=== PATIENT | male | born 1980 | race Two or more races ===

== ENCOUNTER 2018-12-21 06:27 | Emergency (ER) | payer MEDICAID ==
[~2018-12-21] VITALS: Ht 162.6 cm; Wt 49.9 kg
[2018-12-21 07:57] LABS: Basophils # (auto) 0 uL; Basophils % (auto) 0.3 % (0.0-2.0); Eosinophils # (auto) 0 uL; Eosinophils % (auto) 0.4 % (0.0-7.0); Hematocrit 34.7 % (41.0-53.0); Hemoglobin 11.5 g/dL (13.5-17.5); Lymphocytes # (auto) 1.2 uL; Lymphocytes % (auto) 27.2 % (10.0-50.0); Mean Corpuscular Hemoglobin 30.8 pg (28.0-32.0); Mean Corpuscular Hgb Conc. 33.2 g/dL (32.0-36.0); Mean Corpuscular Volume 92.9 fL (80.0-100.0); Monocytes # (auto) 0.6 uL; Monocytes % (auto) 13.3 % (0.0-12.0); Neutrophils # (auto) 2.5 uL; Neutrophils % (auto) 58.8 % (37.0-80.0); Nucleated Red Blood Cells % 0.1 %; Platelet Count (auto) 162 10^3/uL (140-450); Red Blood Cells 3.73 10^6/uL (4.5-5.90); Red Cell Distribution Width 13.1 % (11.8-14.3); White Blood Cell 4.3 10^3/uL (4.4-10.8)
[2018-12-21 08:00] VITALS: BP 110/77
[2018-12-21 08:01] LABS: Urine Bacteria NONE SEEN /hpf (None Seen); Urine Blood Negative /uL (Negative); Urine Mucus FEW (None Seen); Urine WBC 97 /hpf (0 - 3)
[2018-12-21 08:21] LABS: Albumin 3.4 g/dL (3.4-5.0); BUN/Creatinine Ratio 23.8; Calcium 8.5 mg/dL (8.5-10.1); Potassium 3.6 mmol/L (3.5-5.1)
[2018-12-21 08:24] LABS: Bilirubin, Total 0.2 mg/dL (0.2-1.0); Total Protein 9.7 g/dL (6.4-8.2)
[2018-12-21 08:28] LABS: Alcohol, Urine < 3.0 mg/dL (0-5); Amphetamine Screen, Urine POSITIVE (NEGATIVE); Barbiturate Scree,Urine NEGATIVE (NEGATIVE); Benzodiazephine Screen, Urine NEGATIVE (NEGATIVE); Cannabinoid Screen, Urine NEGATIVE (NEGATIVE); Cocaine Screen, Urine NEGATIVE (NEGATIVE); Opiate Scree,Urine NEGATIVE (NEGATIVE); Phencyclidine Screen, Urine NEGATIVE (NEGATIVE)
[2018-12-21] MEDS ORDERED: ACETAMINOPHEN 325 MG TAB PO ONE (08:30)
== END 2018-12-21 09:30 | disposition home or self-care (01) ==
LOC: ER 06:27
DX: S00.81XA Abrasion of other part of head, initial encounter (principal); L03.211 Cellulitis of face; X58.XXXA Exposure to other specified factors, initial encounter; Y93.89 Activity, other specified; Y99.8 Other external cause status; Y92.89 Other specified places as the place of occurrence of the external cause
CPT/HCPCS: 36415; 80053; 80307; 81001; 85025

== ENCOUNTER 2019-06-23 10:22 | Emergency (ER) | payer MEDICAID ==
[~2019-06-23] VITALS: Ht 165.1 cm; Wt 59.4 kg
[2019-06-23 10:36] VITALS: BP 113/75
== END 2019-06-23 11:25 | disposition home or self-care (01) ==
LOC: ER 10:22
DX: B02.9 Zoster without complications (principal)

== ENCOUNTER 2019-08-17 10:52 | Emergency (ER) | payer MEDICAID ==
[~2019-08-17] VITALS: Ht 165.1 cm; Wt 55.8 kg
[2019-08-17 10:57] VITALS: BP 140/82
== END 2019-08-17 12:20 | disposition left against medical advice (07) ==
LOC: ER 10:52
DX: R06.02 Shortness of breath (principal); Z53.21 Procedure and treatment not carried out due to patient leaving prior to being seen by health care provider

== ENCOUNTER → 2020-01-03 | Emergency (ER) | payer MEDICAID ==
[~2020-01-03] VITALS: Ht 165.1 cm; Wt 54.4 kg
[2020-01-03 08:45] VITALS: BP 117/78
== END | disposition home or self-care (01) ==
LOC: ER 08:34
DX: L02.214 Cutaneous abscess of groin (principal); Z88.5 Allergy status to narcotic agent; Z88.8 Allergy status to other drugs, medicaments and biological substances

== ENCOUNTER 2020-01-30 16:56 | Emergency (ER) | payer MEDICAID ==
[~2020-01-30] VITALS: Ht 165.1 cm; Wt 56.7 kg
[2020-01-30 17:44] VITALS: BP 111/84
== END 2020-01-30 17:49 | disposition home or self-care (01) ==
LOC: ER 16:56
DX: L02.416 Cutaneous abscess of left lower limb (principal); Z88.5 Allergy status to narcotic agent; Z88.8 Allergy status to other drugs, medicaments and biological substances

== ENCOUNTER 2020-02-13 12:01 | Emergency (ER) | payer MEDICAID ==
[~2020-02-13] VITALS: Ht 165.1 cm; Wt 58.5 kg
[2020-02-13 13:10] VITALS: BP 116/63
== END 2020-02-13 13:53 | disposition home or self-care (01) ==
LOC: ER 12:01
DX: S00.93XA Contusion of unspecified part of head, initial encounter (principal); M62.838 Other muscle spasm; M54.2 Cervicalgia; Z88.5 Allergy status to narcotic agent; Z88.8 Allergy status to other drugs, medicaments and biological substances; W18.39XA Other fall on same level, initial encounter; Y93.89 Activity, other specified; Y92.89 Other specified places as the place of occurrence of the external cause; Y99.8 Other external cause status

== ENCOUNTER 2020-06-19 11:13 | Emergency (ER) | payer MEDICAID ==
[~2020-06-19] VITALS: Ht 165.1 cm; Wt 63.5 kg
[2020-06-19 12:16] VITALS: BP 128/95
== END 2020-06-19 13:09 | disposition home or self-care (01) ==
LOC: ER 11:13
DX: H10.9 Unspecified conjunctivitis (principal); F12.10 Cannabis abuse, uncomplicated; Z88.6 Allergy status to analgesic agent

== ENCOUNTER 2020-11-29 14:48 | Emergency (ER) | payer MEDICAID ==
[~2020-11-29] VITALS: Ht 165.1 cm; Wt 62.1 kg
[2020-11-29 15:10] VITALS: BP 138/65
== END 2020-11-29 17:04 | disposition home or self-care (01) ==
LOC: ER 14:48
DX: L84 Corns and callosities (principal); F15.10 Other stimulant abuse, uncomplicated; F14.10 Cocaine abuse, uncomplicated; Z88.6 Allergy status to analgesic agent
CPT/HCPCS: 73630

== ENCOUNTER 2020-12-14 10:53 | Emergency (ER) | payer MEDICAID ==
[~2020-12-14] VITALS: Ht 165.1 cm; Wt 61.2 kg
[2020-12-14 12:59] VITALS: BP 109/79
[2020-12-14] MEDS ORDERED: IOHEXOL 350 MG/ML 100ML IJ ONE (14:56)
== END 2020-12-14 13:17 | disposition home or self-care (01) ==
LOC: ER 10:53
DX: S20.212A Contusion of left front wall of thorax, initial encounter (principal); F15.10 Other stimulant abuse, uncomplicated; F14.10 Cocaine abuse, uncomplicated; Z88.6 Allergy status to analgesic agent; Y04.2XXA Assault by strike against or bumped into by another person, initial encounter; Y93.89 Activity, other specified; Y92.89 Other specified places as the place of occurrence of the external cause; Y99.8 Other external cause status
CPT/HCPCS: 71101; 99283; Q9967

== ENCOUNTER 2020-12-18 09:53 | Emergency (ER) | payer MEDICAID ==
[~2020-12-18] VITALS: Ht 165.1 cm; Wt 61.2 kg
[2020-12-18 09:54] VITALS: BP 146/90
== END 2020-12-18 12:09 | disposition home or self-care (01) ==
LOC: ER 09:53
DX: S80.812A Abrasion, left lower leg, initial encounter (principal); S80.811A Abrasion, right lower leg, initial encounter; X58.XXXA Exposure to other specified factors, initial encounter; Y93.89 Activity, other specified; Y92.89 Other specified places as the place of occurrence of the external cause; Y99.8 Other external cause status

== ENCOUNTER 2021-07-31 14:45 | Emergency (ER) | payer MEDICAID ==
[~2021-07-31] VITALS: Ht 170.2 cm; Wt 56.2 kg
[2021-07-31 15:03] VITALS: BP 150/70
== END 2021-07-31 15:02 | disposition left against medical advice (07) ==
LOC: EDBD 14:45 → ER 14:45
DX: F15.10 Other stimulant abuse, uncomplicated (principal); Z53.21 Procedure and treatment not carried out due to patient leaving prior to being seen by health care provider

== ENCOUNTER 2021-10-14 21:45 | Emergency (ER) | payer MEDICAID ==
[~2021-10-14] VITALS: Ht 165.1 cm; Wt 53.1 kg
[2021-10-14 21:47] VITALS: BP 135/84
== END 2021-10-15 01:34 | disposition left against medical advice (07) ==
LOC: ER 21:46
DX: H57.89 Other specified disorders of eye and adnexa (principal); Z53.21 Procedure and treatment not carried out due to patient leaving prior to being seen by health care provider

== ENCOUNTER 2022-02-23 10:08 | Emergency (ER) | payer MEDICAID ==
[~2022-02-23] VITALS: Ht 167.6 cm; Wt 49.9 kg
[2022-02-23] MEDS ORDERED: BICT1TAB PO (12:02)
[2022-02-23 12:03] VITALS: BP 120/77
== END 2022-02-23 12:12 | disposition home or self-care (01) ==
LOC: ER 10:08
DX: B20 Human immunodeficiency virus [HIV] disease (principal); Z76.0 Encounter for issue of repeat prescription; Z88.6 Allergy status to analgesic agent

== ENCOUNTER 2023-07-12 08:01 | Emergency (ER) | payer MEDICAID ==
[~2023-07-12] VITALS: Ht 165.1 cm; Wt 56.0 kg
[~2023-07-12 08:01] MED LIST: BACDST PO; BICT1TAB PO; TRIA0.02 TOP
[2023-07-12 08:45] VITALS: BP 124/103; PULSE 97; RESP 16; TEMP 97.8; O2SAT 99
[2023-07-12] MEDS ORDERED: FLUORESCEIN SOD OPTH TEST STRIP LEFTEYE ONE (10:15)
[2023-07-12] MEDS ORDERED: TOBR0.3S37 OP (10:42)
== END 2023-07-12 10:51 | disposition home or self-care (01) ==
LOC: ER 08:01
DX: S05.02XA Injury of conjunctiva and corneal abrasion without foreign body, left eye, initial encounter (principal); H10.9 Unspecified conjunctivitis; F15.90 Other stimulant use, unspecified, uncomplicated; Z88.6 Allergy status to analgesic agent; Z88.8 Allergy status to other drugs, medicaments and biological substances; Z79.899 Other long term (current) drug therapy; X58.XXXA Exposure to other specified factors, initial encounter; Y93.89 Activity, other specified; Y92.89 Other specified places as the place of occurrence of the external cause; Y99.8 Other external cause status

== ENCOUNTER 2023-08-22 18:19 | Emergency (ER) | payer MEDICAID ==
[~2023-08-22] VITALS: Ht 167.6 cm; Wt 54.5 kg
[~2023-08-22 18:19] MED LIST changes: +TOBR0.3S37 OP
[2023-08-22 18:26] VITALS: BP 144/76; PULSE 100; RESP 16; TEMP 97.6; O2SAT 94
[2023-08-22 19:08] LABS: Urine Bacteria NONE SEEN /hpf (None Seen); Urine Blood 1+ /uL (Negative); Urine Clarity HAZY (Clear); Urine Color Yellow (Yellow); Urine Mucus FEW (None Seen); Urine Protein, UAD TRACE (Negative); Urine Specific Gravity 1.028 (1.001-1.035); Urine Urobilinogen Normal (Negative); Urine WBC 244 /hpf (0 - 3); Urine pH 5.5 (5.0-8.0)
[2023-08-22] MEDS ORDERED: ALBUTEROL SULF 2.5 MG/0.5ML(0.5%) NEB SOLN NEB ONE (19:45)
[2023-08-22] MEDS ORDERED: DexAMETHasone SOD PHOS 4 MG/1ML SDV INJ IM ONE (19:45)
[2023-08-22] MEDS ORDERED: ALBUTEROL SULF 2.5 MG/0.5ML(0.5%) NEB SOLN ONE (19:46)
[2023-08-22] MEDS ORDERED: CEPH500C PO (20:10)
[2023-08-22] MEDS ORDERED: DOXY100C4 PO (20:10)
[2023-08-22] MEDS ORDERED: AZITHROMYCIN 250 MG TAB PO ONE (20:15)
[2023-08-22] MEDS: cefTRIAXone SOD 1,000 MG VL IM ONE ×2 (20:15→20:30)
== END 2023-08-22 20:37 | disposition home or self-care (01) ==
LOC: ER 18:19
DX: N34.2 Other urethritis (principal); F15.10 Other stimulant abuse, uncomplicated; Z20.2 Contact with and (suspected) exposure to infections with a predominantly sexual mode of transmission; Z88.6 Allergy status to analgesic agent
CPT/HCPCS: 81001; 99283; J0696

== ENCOUNTER 2023-11-17 14:29 | Emergency (ER) | payer MEDICAID ==
[~2023-11-17] VITALS: Ht 165.1 cm; Wt 56.6 kg
[~2023-11-17 14:29] MED LIST changes: +CEPH500C PO; +DOXY100C4 PO
[2023-11-17 14:45] VITALS: BP 112/72; PULSE 105; RESP 16; O2SAT 99
[2023-11-17 15:18] LABS: Urine Bacteria FEW /hpf (None Seen); Urine Blood TRACE /uL (Negative); Urine Clarity Clear (Clear); Urine Color Yellow (Yellow); Urine Mucus FEW (None Seen); Urine Protein, UAD 1+ (Negative); Urine Specific Gravity 1.031 (1.001-1.035); Urine Urobilinogen Normal (Negative); Urine WBC 26 /hpf (0 - 3); Urine pH 5.5 (5.0-8.0)
[2023-11-17 15:46] LABS: Basophils # (auto) 0 10 ^3/uL (0-0.2); Basophils % (auto) 0.1 % (0.0-2.0); Eosinophils # (auto) 0 10 ^3/uL (0-0.8); Eosinophils % (auto) 0.1 % (0.0-7.0); Hematocrit 39.1 % (41.0-53.0); Hemoglobin 12.4 g/dL (13.5-17.5); Lymphocytes # (auto) 2.3 10 ^3/uL (0.4-5.4); Lymphocytes % (auto) 21.3 % (10.0-50.0); Mean Corpuscular Hemoglobin 29.8 pg (28.0-32.0); Mean Corpuscular Hgb Conc. 31.8 g/dL (32.0-36.0); Mean Corpuscular Volume 93.7 fL (80.0-100.0); Monocytes # (auto) 1.1 10 ^3/uL (0-1.3); Monocytes % (auto) 10.1 % (0.0-12.0); Neutrophils # (auto) 7.2 10 ^3/uL (1.6-8.6); Neutrophils % (auto) 68.4 % (37.0-80.0); Nucleated Red Blood Cells % 0.1 %; Red Blood Cells 4.17 10^6/uL (4.5-5.90); Red Cell Distribution Width 14.1 % (11.8-14.3); White Blood Cell 10.6 10^3/uL (4.4-10.8)
[2023-11-17 16:08] LABS: Alanine Aminotransferase 21 U/L (7-40); Alkaline Phosphatase 78 U/L (46-116); Anion Gap 4 (5-15); Aspartate Aminotransferase 33 U/L (13-40); BUN/Creatinine Ratio 9.2 (10.0-20.0); Blood Urea Nitrogen 6 mg/dL (9-23); Calcium 8.6 mg/dL (8.5-10.1); Carbon Dioxide 22 mmol/L (20-30); Chloride 110 mmol/L (98-107); Glucose 81 mg/dL (74-106); Potassium 3.7 mmol/L (3.5-5.1); Sodium 136 mmol/L (136-145)
[2023-11-17 16:09] LABS: Bilirubin, Total 0.3 mg/dL (0.2-1.0); Total Protein 7.5 g/dL (5.7-8.2)
[2023-11-17] MEDS ORDERED: LEVO750T40 PO (22:16)
[2023-11-17] MEDS: cefTRIAXone SOD 1,000 MG VL IM ONE (22:57)
[2023-11-17] MEDS: DOXYCYCLINE 100 MG TAB/CAP PO ONE (22:59)
[2023-11-17] MEDS: cefTRIAXone 1GM/50ML D5W 50 ML IV ONE (22:59)
[2023-11-18 19:06] LABS: Chlamydia Trachomatis, NAA Negative (Negative); Neisseria gonorrhoeae, NAA Negative (Negative)
== END 2023-11-17 23:33 | disposition home or self-care (01) ==
LOC: ER 14:29
DX: N45.3 Epididymo-orchitis (principal); N39.0 Urinary tract infection, site not specified; R19.7 Diarrhea, unspecified; Z79.2 Long term (current) use of antibiotics; Z79.899 Other long term (current) drug therapy; Z88.8 Allergy status to other drugs, medicaments and biological substances
CPT/HCPCS: 36415; 74176; 76870; 80053; 81001; 82270; 83605; 83690; 85025; 85048; 87040; 87045; 87177; 87427; 87491; 87493; 87591; 99285; J0696

== ENCOUNTER 2023-12-21 19:31 | Emergency (ER) | payer MEDICAID ==
[~2023-12-21] VITALS: Ht 165.1 cm; Wt 57.0 kg
[~2023-12-21 19:31] MED LIST changes: +LEVO750T40 PO
[2023-12-21 19:53] VITALS: O2SAT 98
[2023-12-21 19:54] LABS: Basophils # (auto) 0 10 ^3/uL (0-0.2); Basophils % (auto) 0.5 % (0.0-2.0); Eosinophils # (auto) 0 10 ^3/uL (0-0.8); Eosinophils % (auto) 0.9 % (0.0-7.0); Hematocrit 37.2 % (41.0-53.0); Hemoglobin 12.2 g/dL (13.5-17.5); Lymphocytes # (auto) 1.7 10 ^3/uL (0.4-5.4); Mean Corpuscular Hemoglobin 30.5 pg (28.0-32.0); Mean Corpuscular Hgb Conc. 32.9 g/dL (32.0-36.0); Mean Corpuscular Volume 92.7 fL (80.0-100.0); Monocytes # (auto) 0.6 10 ^3/uL (0-1.3); Monocytes % (auto) 12.6 % (0.0-12.0); Neutrophils # (auto) 2.4 10 ^3/uL (1.6-8.6); Nucleated Red Blood Cells % 0.1 %; Red Blood Cells 4.02 10^6/uL (4.5-5.90); Red Cell Distribution Width 14.3 % (11.8-14.3); White Blood Cell 4.8 10^3/uL (4.4-10.8)
[2023-12-21 20:05] LABS: Chloride 107 mmol/L (98-107); Potassium 3.7 mmol/L (3.5-5.1); Sodium 140 mmol/L (136-145)
[2023-12-21 20:06] LABS: Anion Gap 7 (5-15); Carbon Dioxide 26 mmol/L (20-30)
[2023-12-21 20:11] LABS: BUN/Creatinine Ratio 17.1 (10.0-20.0); Blood Urea Nitrogen 14 mg/dL (9-23); Glucose 84 mg/dL (74-106)
[2023-12-21 20:46] LABS: Urine Bacteria None Seen /hpf (None Seen)
[2023-12-21 20:57] LABS: Urine Blood 3+ /uL (Negative); Urine Clarity Turbid (Clear); Urine Color Colorless (Yellow); Urine Protein, UAD 2+ (Negative); Urine Specific Gravity 1.023 (1.001-1.035); Urine Urobilinogen Normal (Negative); Urine WBC 551 /hpf (0 - 3); Urine WBC Clumps PRESENT /hpf (None Seen); Urine pH 7.5 (5.0-9.0)
[2023-12-21] MEDS ORDERED: CIPR-173 PO (21:02)
[2023-12-21 22:31] VITALS: BP 123/80; PULSE 85; RESP 85; TEMP 98.7
== END 2023-12-21 22:36 | disposition home or self-care (01) ==
LOC: ER 19:31
DX: N34.2 Other urethritis (principal); F15.10 Other stimulant abuse, uncomplicated; Z88.6 Allergy status to analgesic agent
CPT/HCPCS: 36415; 74176; 80048; 81001; 85025

== ENCOUNTER 2024-03-13 12:58 | Emergency (ER) | payer MEDICAID ==
[~2024-03-13] VITALS: Ht 165.1 cm; Wt 56.1 kg
[~2024-03-13 12:58] MED LIST changes: +CIPR-173 PO
[2024-03-13 16:27] VITALS: BP 119/78; PULSE 100; RESP 18; TEMP 98; O2SAT 100
[2024-03-13] MEDS: PENICILLIN G BENZ 1,200,000 UNITS/2 ML SYRG IM ONE (17:02)
== END 2024-03-13 16:58 | disposition home or self-care (01) ==
LOC: ER 12:58
DX: A53.9 Syphilis, unspecified (principal); F15.90 Other stimulant use, unspecified, uncomplicated; Z79.1 Long term (current) use of non-steroidal anti-inflammatories (NSAID); Z79.891 Long term (current) use of opiate analgesic; Z79.899 Other long term (current) drug therapy; Z90.89 Acquired absence of other organs
CPT/HCPCS: 90471; 99283; J0561

== ENCOUNTER 2025-04-18 06:25 | Emergency (ER) | payer MEDICAID ==
[~2025-04-18] VITALS: Ht 165.1 cm; Wt 57.0 kg
[2025-04-18 07:15] VITALS: BP 123/77; PULSE 93; RESP 20; TEMP 98.3; O2SAT 95
--- NOTE | 2025-04-18 07:26 | ED.PDOC ---
Eye-HPI HPI Comments This is a 44 year old male presenting to the ED with chief complaint of left eye pain, redness, and vision loss. Patient reports that he has been experiencing redness, pain, and vision loss to the left eye for a month. Patient relays that his pain is a 4/10 at this time. Recent visit to [place] last Thursday indicated that he had an ulcer to the left eye, being prescribed Vancomycin and Tobramycin eye drops, but no relief has been noted. Patient states he was advised by [facility]ologists to return to their hospital if no relief had been noted by the antibiotics so that he can undergo emergency surgery. Patient notes he has no ride to drive down to [place], requesting to be transferred from the ED today. Denies eye discharge Denies hearing changes, nausea, vomiting Denies difficulty keeping eye open, feeling of something stuck in the eye, sensitivity to light Chief Complaint: Eye Problem Time Seen by MD: 07:15 Primary Care Provider: unknown Reviewed Notes: Nurses Notes, Medications, Allergies Allergies: Coded Allergies: Acetaminophen (Verified Allergy, Unknown, 08/17/19) Hydrocodone (Verified Allergy, Unknown, 08/17/19) Home Meds Active Scripts Ciprofloxacin Hcl (Cipro) 500 Mg Tab, 1 TAB PO BID, #14 TAB Prov:MIKAELA OLIVEIRA MD 12/21/23 Levofloxacin Hemihydrate (LEVOFLOXACIN) 750 Mg Tab, 500 MG PO DAILY for 10 Days, #10 TAB Prov:VIKASH ANDERSEN DO 11/17/23 Cephalexin Monohydrate (Cephalexin) 500 Mg Cap, 1 CAP PO TID for 10 Days, #30 CAP Prov:SANCHEZ RUBIO Q JOB COACHING 08/22/23 Doxycycline Hyclate (Doxycycline Hyclate) 100 Mg Cap, 1 TAB PO BID for 14 Days, #28 CAP Prov:SANCHEZ RUBIO Q JOB COACHING 08/22/23 Tobramycin (Ophth) (Tobramycin) 0.3 % Melissa, 0.3 % OP Q4HR for 7 Days, #5 ML Prov:MALI TONG JOB COACHING 07/12/23 Sulfamethoxazole W/Trimethopri (Bactrim Ds Tablet) 1 Tab Tb, 1 TAB PO BID for 10 Days, #20 TAB Prov:LAZARUS SOLO 07/26/22 Triamcinolone Acetonide (Triamcinolone Acetonide) 0.025 % Cre, 1 APPLIC TOP BID, #30 GRAMS Prov:LAZARUS SOLO 07/26/22 Ibfceejqerv-Pppxcyhqetgjz-Euap (Biktarvy 50-200-25 mg) 1 Tab Tab, 1 TAB PO DAILY, #30 TAB 0 Refills Prov:NABIL JUAREZ 02/23/22 Information Source: Patient Mode of Arrival: Ambulatory Timing: Months Duration: Since onset Prehospital treatment: None Quality: Pain, Red, Visual Loss Eye Location: Left Lids: Red Conjunctiva: Injection Onset: Spontaneous Throat Exposed to: None History of: None Past Medical History PAST MEDICAL HISTORY: HIV Surgical History: Appendectomy Family History Family History: Reviewed,noncontributory to illness Social History Smoker: Non-Smoker Alcohol: Denies ETOH Use Drugs: Methamphetamine Lives In: Home Constitutional: denies: chills, diaphoresis, fatigue, fever, malaise, sweats, weakness, others EENTM: reports: blurred vision, eye pain, eye redness; denies: double vision, ear bleeding, ear discharge, ear drainage, ear pain, ear ringing, hearing loss, mouth pain, mouth swelling, nasal discharge, nose bleeding, nose congestion, nose pain, photophobia, tearing, throat pain, throat swelling, voice changes, others Respiratory: denies: cough, hemoptysis, orthopnea, SOB at rest, shortness of breath, SOB with excertion, stridor, wheezing, others Cardiovascular: denies: chest pain, dizzy spells, diaphoresis, Dyspnea on exertion, edema, irregular heart beat, left arm pain, lightheadedness, palpitations, PND, syncope, others Gastrointestinal: denies: abdomen distended, abdominal pain, blood streaked bowels, constipated, diarrhea, dysphagia, difficulty swallowing, hematemesis, melena, nausea, poor appetite, poor fluid intake, rectal bleeding, rectal pain, vomiting, others Genitourinary: denies: burning, dysuria, flank pain, frequency, hematuria, incontinence, penile discharge, penile sore, pain, testicle pain, testicle swelling, urgency, others Neurological: denies: dizziness, fainting, headache, left sided numbness, left sided weakness, numbness, paresthesia, pre-existing deficit, right sided numbness, right sided weakness, seizure, speech problems, tingling, tremors, weakness, others Musculoskeletal: denies: back pain, gout, joint pain, joint swelling, muscle pain, muscle stiffness, neck pain, others Integumetry: denies: bruises, change in color, change in hair/nails, dryness, laceration, lesions, lumps, rash, wounds, others Allergic/Immunocompromised: denies: Difficulty Healing, Frequent Infections, Hives, Itching, others Hematologic/Lymphatic: denies: anemia, blood clots, easy bleeding, easy bruising, swollen glands, others Endocrine: denies: excessive hunger, excessive sweating, excessive thirst, excessive urination, flushing, intolerance to cold, intolerance to heat, unexpl ained weight gain, unexplained weight loss, others Psychiatric: denies: anxiety, bipolar disorder, depression, hopeless, panic disorder, schizophrenia, sleepless, suicidal, others All Other Systems: Reviewed and Negative Physical Exam General Appearance: No Apparent Distress, Normal HEENT: Pharynx Normal, TMs Normal, Other (Scarring throughout iris and sclera, Pupils non-reactive, No orbital edema, No hyphema, No foreign bodies) Neck: Full Range of Motion, Non-Tender, Normal, Normal Inspection Respiratory: Chest Non-Tender, Lungs Clear, No Accessory Muscle Use, No Respiratory Distress, Normal Breath Sounds Cardiovascular: No Edema, No JVD, No Murmur, No Gallop, Normal Peripheral Pulses, Regular Rate/Rhythm Breast Exam: Deferred Gastrointestinal: No Organomegaly, Non Tender, No Pulsatile Mass, Normal Bowel Sounds, Soft Genitalia: Deferred Pelvic: Deferred Rectal: Deferred Extremities: No calf tenderness, Normal capillary refill, Normal inspection, Normal range of motion, Non-tender, No pedal edema Musculoskeletal : Apperance: Normal Neurologic: Alert, manager of supply chain II-XII nml as Tested, No Motor Deficits, Normal Affect, Normal Mood, No Sensory Deficits Cerebellar Function: Normal Reflexes: Normal Skin: Dry, Normal Color, Warm Lymphatic: No Adenopathy Was a procedure done? Was a procedure done?: No EENT DIFF Eye: Conjunctivitis, Bacterial, Corneal Ulceration X-Ray, Labs, Meds, VS Vital Signs Date Time Temp Pulse Resp B/P (MAP) Pulse Ox O2 Delivery O2 Flow Rate FiO2 8/5/25 07:15 98.3 93 20 123/77 (92) 95 98.3 04/18/25 07:15 93 20 95 Room Air 04/18/25 07:01 98.3 93 20 123/77 95 98.3 X-Ray, Labs, Meds, VS Comment Patient arrives alert and oriented, ABC's intact, afebrile, vital signs stable, saturating well in room air Additional MDM Review of External, Non-ED records: External records reviewed. Discussion with independent historian (EMS, family) history obtained from the patient/parents (if applicable) at bedside Chronic conditions affecting care: None Social determinants of health affecting care: None Consideration of admission (observation or admission): I considered escalation of care to admission for this patient, however given the reassuring workup, the patient is safe for outpatient management. Discussion with the Radiology: No Tests considered but not performed: None Prescription medication considered but not given: none Time of 1ST Reevaluation: 07:37 Reevaluation 1ST: Unchanged Patient Education/Counseling: Diagnosis, Treatment Family Education/Counseling: No Family Present SEPSIS Sepsis Screen Vital Signs Date Time Temp Pulse Resp B/P (MAP) Pulse Ox O2 Delivery O2 Flow Rate FiO2 04/18/25 07:15 98.3 93 20 123/77 (92) 95 98.3 04/18/25 07:15 93 20 95 Room Air 04/18/25 07:01 98.3 93 20 123/77 95 98.3 Departure 1 Departure Time of Disposition: 08:00 Impression: Primary Impression: Eloped from emergency department Disposition: LEFT AWOL/ELOPED Condition: Serious Critical Care Note Critical Care Time?: No Stability Stability form required: No Heart Score Heart Score: Heart Score Response (Comments) Value History N/A 0 EKG N/A 0 Age N/A 0 Risk Factors N/A 0 Troponin N/A 0 Total 0 I personally scribed for SCOTT PRINCE NP ([email or web address]) on 04/18/25 at 07:26. Electronically submitted by Matt Swann ([email or web address]). SCOTT PRINCE NP Apr 18, 2025 07:26
== END 2025-04-18 08:01 | disposition left against medical advice (07) ==
LOC: ER 06:25
DX: H57.12 Ocular pain, left eye (principal); H54.7 Unspecified visual loss; Z90.49 Acquired absence of other specified parts of digestive tract; Z88.5 Allergy status to narcotic agent

== ENCOUNTER 2025-08-31 10:48 | Emergency (ER) | payer MEDICAID ==
[~2025-08-31] VITALS: Ht 165.1 cm; Wt 54.5 kg
[2025-08-31 10:52] VITALS: BP 114/63; PULSE 100; RESP 18; TEMP 98.4; O2SAT 99
--- NOTE | 2025-08-31 11:39 | ED.PDOC ---
GI ASSESSMENT HPI Comments 45 year old male presents to the emergency department for chief complaint of constipation onset 2 days ago. Pt has not tried any OTC medications to alleviate the blockage and explains that he has attempted to increase his appetite but has had no improvement in his bowel movements. In the ED, Pt states that his stool is dry and sparse. Pt denies associated symptoms of dizziness, nausea, vomiting, or headache. Pt vitals are otherwise stable. Pt denies any other symptoms at this time. Chief Complaint: Abdominal Pain Time Seen by MD: 11:39 Primary Care Provider: unknown Allergies: Coded Allergies: Acetaminophen (Verified Allergy, Unknown, 08/17/19) Hydrocodone (Verified Allergy, Unknown, 08/17/19) Home Meds Active Scripts Ciprofloxacin Hcl (Cipro) 500 Mg Tab, 1 TAB PO BID, #14 TAB Prov:MIKAELA OLIVEIRA MD 12/21/23 Levofloxacin Hemihydrate (LEVOFLOXACIN) 750 Mg Tab, 500 MG PO DAILY for 10 Days, #10 TAB Prov:VIKASH ANDERSEN DO 11/17/23 Cephalexin Monohydrate (Cephalexin) 500 Mg Cap, 1 CAP PO TID for 10 Days, #30 CAP Prov:SANCHEZ RUBIO Q EXCAVATOR OPERATOR 08/22/23 Doxycycline Hyclate (Doxycycline Hyclate) 100 Mg Cap, 1 TAB PO BID for 14 Days, #28 CAP Prov:SANCHEZ RUBIO Q EXCAVATOR OPERATOR 08/22/23 Tobramycin (Ophth) (Tobramycin) 0.3 % Melissa, 0.3 % OP Q4HR for 7 Days, #5 ML Prov:MALI TONG EXCAVATOR OPERATOR 07/12/23 Sulfamethoxazole W/Trimethopri (Bactrim Ds Tablet) 1 Tab Tb, 1 TAB PO BID for 10 Days, #20 TAB Prov:LAZARUS SOLO 07/26/22 Triamcinolone Acetonide (Triamcinolone Acetonide) 0.025 % Cre, 1 APPLIC TOP BID, #30 GRAMS Prov:LAZARUS SOLO 07/26/22 Pblzndaniih-Uppcqsmxtseli-Zgoo (Biktarvy 50-200-25 mg) 1 Tab Tab, 1 TAB PO DAILY, #30 TAB 0 Refills Prov:NABIL JUAREZ 02/23/22 Mode of Arrival: EMS Timing: Days Duration: Since onset Prehospital treatment: None Quality: Aching, None Vomitus: Hard, None Stool: Other (Dry) Severity: Mild, Moderate Recent: None Recent Hx of: None Pain Location: Diffuse Modifying Factors: Nothing Associated sign and symptoms: Constipation Past Medical History PAST MEDICAL HISTORY: HIV Surgical History: Appendectomy Family History Family History: Reviewed,noncontributory to illness Social History Smoker: Non-Smoker Alcohol: Denies ETOH Use Drugs: Methamphetamine Lives In: Home Physical Exam General Appearance: No Apparent Distress, Normal HEENT: Normal ENT Inspection, Pharynx Normal, TMs Normal Neck: Full Range of Motion, Non-Tender, Normal, Normal Inspection Respiratory: Chest Non-Tender, Lungs Clear, No Accessory Muscle Use, No Respiratory Distress, Normal Breath Sounds Cardiovascular: No Edema, No JVD, No Murmur, No Gallop, Normal Peripheral Pulses, Regular Rate/Rhythm Breast Exam: Deferred Gastrointestinal: No Organomegaly, Non Tender, No Pulsatile Mass, Normal Bowel Sounds, Soft Genitalia: Deferred Pelvic: Deferred Rectal: Other (dry stool) Extremities: No calf tenderness, Normal capillary refill, Normal inspection, Normal range of motion, Non-tender, No pedal edema Neurologic: Alert, motor vehicle assembly supervisor II-XII nml as Tested, No Motor Deficits, Normal Affect, Normal Mood, No Sensory Deficits Cerebellar Function: Normal Reflexes: Normal Skin: Dry, Normal Color, Warm Lymphatic: No Adenopathy Was a procedure done? Was a procedure done?: No GI differential Dx Differential Diagnosis: Constipation X-Ray, Labs, Meds, VS Vital Signs Date Time Temp Pulse Resp B/P (MAP) Pulse Ox O2 Delivery O2 Flow Rate FiO2 08/31/25 10:52 98.4 100 18 114/63 99 98.4 Time of 1ST Reevaluation: 12:09 Reevaluation 1ST: Unchanged Patient Education/Counseling: Diagnosis, Treatment Family Education/Counseling: No Family Present SEPSIS Sepsis Screen Date sepsis recognized/suspect: Aug 31, 2025 Time Sepsis recognized/suspect: 1052 Recent Procedure: No On Antibiotic Therapy: No Respiratory Rate >20: No Heart Rate >90: No Temp<36 C (96.8 F) or >38.3 C: No SBP <90 or MAP <65 mmHG: No New Acute Mental Status Change: No Is the patient on CPAP, BIPAP,: No Vital Signs Date Time Temp Pulse Resp B/P (MAP) Pulse Ox O2 Delivery O2 Flow Rate FiO2 08/31/25 10:52 98.4 100 18 114/63 99 98.4 Departure 1 Departure Time of Disposition: 12:27 (Patient presents with constipation. We will discharge patient home with outpatient follow up) Impression: Primary Impression: Constipation Disposition: 01 HOME / SELF CARE / HOMELESS Condition: Stable Additional Instructions: You are constipated. It is important to stay well rested and well hydrated. You should eat a high-fiber diet. you should take dzwa-lkf-ffrymgy MiraLax. You can start with two cap fulls a day. Please take as directed. If your symptoms worsen or you have any other concerns please return to the emergency room. Discharged With: Self Critical Care Note Critical Care Time?: No Stability Stability form required: No Heart Score Heart Score: Heart Score Response (Comments) Value History N/A 0 EKG N/A 0 Age N/A 0 Risk Factors N/A 0 Troponin N/A 0 Total 0 I personally scribed for SILVINO CASILLAS MD ([email or web address]) on 08/31/25 at 11:39. Electronically submitted by Mai Finch ([employer]). I personally scribed for SILVINO CASILLAS MD ([email or web address]) on 08/31/25 at 11:42. Electronically submitted by Mai Finch ([email or web address]). I personally scribed for SILVINO CASILLAS MD ([email or web address]) on 08/31/25 at 11:45. Electronically submitted by Mai Finch ([email or web address]). SILVINO CASILLAS MD Aug 31, 2025 11:39
== END 2025-08-31 13:39 | disposition home or self-care (01) ==
LOC: ER 10:48 → EDBD 10:48 → ER 13:37
DX: K59.00 Constipation, unspecified (principal); Z79.899 Other long term (current) drug therapy; Z90.49 Acquired absence of other specified parts of digestive tract; Z88.5 Allergy status to narcotic agent; Z79.624 Long term (current) use of inhibitors of nucleotide synthesis